=== PATIENT | male | born 1940 | race Caucasian/White ===

== ENCOUNTER → 2019-07-08 09:00 | Outpatient (CLI) | payer MEDICARE ==
[2019-07-08 12:56] LABS: ALBUMIN 2.2 g/dL (3.4-5.0); BILIRUBIN - DIRECT 0.07 mg/dL (0.00-0.30); BILIRUBIN - INDIRECT 0.41 mg/dL (0.00-1.00); BILIRUBIN - TOTAL 0.48 mg/dL (0.2-1.3); PROTEIN - SERUM 5.6 g/dL (6.4-8.2)
== END | disposition home or self-care (01) ==
LOC: D.LABREF 09:00
PROVIDERS: ATTEND Specialist
DX: Z48.3 Aftercare following surgery for neoplasm (principal); C71.3 Malignant neoplasm of parietal lobe

== ENCOUNTER 2019-08-23 15:33 | Emergency (ER) | payer MEDICARE ==
[~2019-08-23] VITALS: Ht 182.9 cm; Wt 86.4 kg
[2019-08-23 15:41] VITALS: Ht 182.9 cm; Wt 86.4 kg
[2019-08-23] MEDS ORDERED: ZYLOPRIM100 MG PO (15:46)
[2019-08-23] MEDS ORDERED: NORVASC5 MG PO (15:47)
[2019-08-23] MEDS ORDERED: LOSARTAN-HCTZ1 EAC1 PO (15:49)
[2019-08-23] MEDS ORDERED: KEPPRA1000 MG PO (15:49)
[2019-08-23] MEDS ORDERED: OMEPRAZOLE20 M1 PO (15:50)
[2019-08-23] MEDS ORDERED: FLOMAX0.4 MG PO (15:50)
[2019-08-23] MEDS ORDERED: ULTRAM50 MG PO (15:51)
[2019-08-23] MEDS ORDERED: ZOFRAN4 MG PO (15:53)
[2019-08-23 16:48] LABS: BASOPHILS 0.1 % (0-2); EOSINOPHILS 0.3 % (0-7); HEMATOCRIT 36.4 % (42.0-54.0); HEMOGLOBIN 11.5 g/dL (13.5-17.5); IMMATURE GRANULOCYTES 0.6 % (0-5); MCH 31.3 pg (26.0-34.0); MCHC 31.6 g/dL (31.0-37.0); MCV 99.2 fL (80.0-100.0); MEAN PLATELET VOLUME 9.3 fL (7.4-10.4); MONOCYTES 8.8 % (2-11); NEUTROPHILS 76.2 % (40-80); PLATELET COUNT 466 10x3/uL (130-400); RBC 3.67 10x6/uL (4.20-6.10); RDW 16.4 % (11.5-14.5); WBC 11.9 10x3/uL (4.8-10.8)
[2019-08-23 17:25] LABS: CALCIUM 8.5 mg/dL (8.5-10.1); CARBON DIOXIDE 22.4 mmol/L (21.0-32.0); CREATININE - SERUM 1.2 mg/dL (0.6-1.3); POTASSIUM - SERUM 3.4 mmol/L (3.5-5.1)
[2019-08-23 17:32] LABS: ALBUMIN 2.1 g/dL (3.4-5.0); BILIRUBIN - TOTAL 0.27 mg/dL (0.2-1.3); MAGNESIUM - SERUM 1.2 mg/dL (1.8-2.4); PROTEIN - SERUM 6.4 g/dL (6.4-8.2)
[2019-08-23] MEDS ORDERED: KEPPRA500 MG PO (20:11)
[2019-08-23 21:18] VITALS: BP 137/85
== END 2019-08-23 21:18 | disposition home or self-care (01) ==
LOC: D.ER 15:33
PROVIDERS: Emergency Medicine
DX: R56.9 Unspecified convulsions (principal); D64.9 Anemia, unspecified; E86.0 Dehydration; E87.0 Hyperosmolality and hypernatremia; E87.6 Hypokalemia; E83.42 Hypomagnesemia; D72.829 Elevated white blood cell count, unspecified; I10 Essential (primary) hypertension